=== PATIENT | female | born 1970 | race African-American/Black ===

== ENCOUNTER 2018-04-27 00:58 | Inpatient (IN) | payer MEDICAID ==
[~2018-04-27] VITALS: Ht 198.1 cm; Wt 66.7 kg
[2018-04-27] MEDS ORDERED: LORAZEPAM 2MG/ML CPJ IV STA (01:12)
[2018-04-27] MEDS ORDERED: SODIUM CHLORIDE 0.9% 1,000 ML IV ONE (01:12)
[2018-04-27] MEDS ORDERED: ONDANSETRON HCL 4MG/2ML INJ IV STA (01:12)
[2018-04-27 01:31] LABS: BG BASE EXCESS -0.3 mmol/L (-2.0-2.0); BG CARBOXYHEMOGLOBIN 2.3 % (0.5-1.5); BG FRACTION INSPIRED OXYGEN 21; BG HCO3 ACT 22.7 mmol/L (22.0-26.0); BG METHEMOGLOBIN 0.3 % (0.0-1.5); BG OXYGEN SATURATION 96.9 % (92.0-98.5); BG OXYHEMOGLOBIN 94.4 % (94.0-97.0); BG PCO2 32.2 mmHg (35.0-45.0); BG PH 7.466 (7.350-7.450); BG PO2 87.3 mmHg (75.0-100.0); BG SAMPLE SITE RIGHT RADIAL; BG TOTAL HEMOGLOBIN 13.1 g/dL (12.0-18.0); BG VENT MODE ROOM AIR
[2018-04-27 03:02] LABS: CLARITY URINE CLEAR (CLEAR); COLOR URINE YELLOW (YELLOW); KETONES URINE TRACE (NEGATIVE); LEUKOCYTE ESTERASE URINE NEGATIVE (NEGATIVE); NITRITE URINE NEGATIVE (NEGATIVE); OCCULT BLOOD URINE NEGATIVE (NEGATIVE); PH URINE 8.5 (4.5-8.0); PROTEIN URINE NEGATIVE (NEGATIVE); SPECIFIC GRAVITY URINE 1.012 (1.005-1.030)
[2018-04-27 03:07] LABS: BASOPHILS % 0.7 % (0.0-2.0); EOSINOPHILS % 0.1 % (0.0-5.0); HEMATOCRIT. 33.8 % (36.0-48.0); HEMOGLOBIN. 11.6 g/dL (12.0-16.0); LYMPHOCYTES % 16.2 % (20.0-50.0); MEAN CORPUSCULAR HEMOGLOBIN 33.7 pg (28.0-32.0); MEAN CORPUSCULAR VOLUME 97.9 fL (81.0-99.0); MEAN PLATELET VOLUME 8.4 fl (7.4-10.4); MONOCYTES % 3.9 % (2.0-8.0); NEUTROPHILS % 79.1 % (40.0-76.0); PLATELET 194 x1000/uL (130-400); RED BLOOD CELL COUNT 3.46 mill/uL (4.2-5.4)
[2018-04-27 03:14] LABS: CHLORIDE 112 mEq/L (98-107)
[2018-04-27 03:18] LABS: ETHANOL BLOOD < 10 mg/dL
[2018-04-27 03:23] LABS: CREATINE KINASE 62 IU/L (26-192)
[2018-04-27 03:28] LABS: *AMPHETAMINES SCREEN URINE NEGATIVE (NEGATIVE); *BARBITURATES SCREEN URINE NEGATIVE (NEGATIVE); *BENZODIAZEPINES SCREEN URINE NEGATIVE (NEGATIVE); *COCAINE SCREEN URINE NEGATIVE (NEGATIVE)
[2018-04-27 03:29] LABS: CANNABINOID URINE SCREEN NEGATIVE (NEGATIVE); METHADONE URINE SCREEN NEGATIVE (NEGATIVE); OPIATES URINE SCREEN NEGATIVE (NEGATIVE); PHENCYCLIDINE URINE SCREEN NEGATIVE (NEGATIVE)
[2018-04-27] MEDS: DEXT 5%/0.45% NACL 1000ML 1,000 ML IV SCH ×2 (06:53→14:49)
[2018-04-27] MEDS ORDERED: ACETAMINOPHEN 650MG SUPP PR PRN (07:00)
[2018-04-27] MEDS ORDERED: ONDANSETRON HCL 4MG/2ML INJ IV PRN (07:00)
[2018-04-27 11:58] VITALS: BP 122/87
[2018-04-27 12:00] VITALS: BP 133/85
[2018-04-27] MEDS: LACTULOSE 20G/30ML UDC PO SCH ×3 (14:00→21:02)
[2018-04-27 16:00] VITALS: BP 135/60
[2018-04-27 20:00] VITALS: BP 139/66
[2018-04-27] MEDS: DIPHENHYDRAMINE 50MG/ML VIAL IV PRN (20:07)
[2018-04-27] MEDS ORDERED: HALOPERIDOL LACTATE 5MG/ML VIAL IM NR (21:00)
[2018-04-27] MEDS: LORAZEPAM 2MG/ML CPJ IV PRN (22:08)
[2018-04-28] VITALS: BP 137/74
[2018-04-28] MEDS: DIPHENHYDRAMINE 50MG/ML VIAL IV PRN ×3 (02:12→21:54)
[2018-04-28] MEDS: DEXT 5%/0.45% NACL 1000ML 1,000 ML IV SCH ×2 (02:18→22:01)
[2018-04-28 04:00] VITALS: BP 135/75
[2018-04-28] MEDS: LACTULOSE 20G/30ML UDC PO SCH ×3 (06:09→21:06)
[2018-04-28 07:31] LABS: BASOPHILS % 0.2 % (0.0-2.0); EOSINOPHILS % 0.2 % (0.0-5.0); HEMATOCRIT. 34.9 % (36.0-48.0); HEMOGLOBIN. 12.2 g/dL (12.0-16.0); LYMPHOCYTES % 37.8 % (20.0-50.0); MEAN CORPUSCULAR HEMOGLOBIN 33.9 pg (28.0-32.0); MEAN CORPUSCULAR VOLUME 97.2 fL (81.0-99.0); MEAN PLATELET VOLUME 8.7 fl (7.4-10.4); MONOCYTES % 6.5 % (2.0-8.0); NEUTROPHILS % 55.3 % (40.0-76.0); PLATELET 188 x1000/uL (130-400); RED BLOOD CELL COUNT 3.59 mill/uL (4.2-5.4); RED CELL DISTRIBUTION WIDTH 12.6 % (11.6-14.6)
[2018-04-28 08:00] VITALS: BP 149/79
[2018-04-28 08:00] LABS: CHLORIDE 112 mEq/L (98-107)
[2018-04-28 08:14] LABS: LDL CHOLESTEROL 93 mg/dL (5-100)
[2018-04-28 08:15] LABS: T4 FREE 1.07 ng/dL (0.76-1.46)
[2018-04-28 08:16] LABS: HDL CHOLESTEROL 31 mg/dL (40-59)
[2018-04-28 12:00] VITALS: BP 129/74
[2018-04-28] MEDS: LORAZEPAM 2MG/ML CPJ IV PRN ×2 (14:03→19:37)
[2018-04-28 16:00] VITALS: BP 129/60
[2018-04-28 20:00] VITALS: BP 125/64
[2018-04-29] VITALS: BP 115/58
[2018-04-29] MEDS: LORAZEPAM 2MG/ML CPJ IV PRN (00:35)
[2018-04-29 04:00] VITALS: BP 119/60
[2018-04-29] MEDS: LACTULOSE 20G/30ML UDC PO SCH ×3 (05:09→22:42)
[2018-04-29 07:57] LABS: BASOPHILS % 0.3 % (0.0-2.0); EOSINOPHILS % 0.2 % (0.0-5.0); HEMOGLOBIN. 12.1 g/dL (12.0-16.0); LYMPHOCYTES % 35.3 % (20.0-50.0); MEAN CORPUSCULAR HEMOGLOBIN 33.5 pg (28.0-32.0); MEAN CORPUSCULAR VOLUME 97.3 fL (81.0-99.0); MEAN PLATELET VOLUME 9.1 fl (7.4-10.4); MONOCYTES % 8.7 % (2.0-8.0); NEUTROPHILS % 55.5 % (40.0-76.0); PLATELET 175 x1000/uL (130-400); RED CELL DISTRIBUTION WIDTH 12.3 % (11.6-14.6)
[2018-04-29 08:00] VITALS: BP 124/84
[2018-04-29 08:35] LABS: CHLORIDE 108 mEq/L (98-107)
[2018-04-29 12:00] VITALS: BP 128/74
[2018-04-29] MEDS: DEXT 5%/0.45% NACL 1000ML 1,000 ML IV SCH (12:13)
[2018-04-29 16:00] VITALS: BP 129/79
[2018-04-29 20:00] VITALS: BP 138/49
[2018-04-30] VITALS: BP 120/80
[2018-04-30 04:00] VITALS: BP_SYST 129; BP_SYST 135; BP_DIAS 56; BP_DIAS 63
[2018-04-30] MEDS: LACTULOSE 20G/30ML UDC PO SCH ×2 (05:30→14:00)
[2018-04-30 07:56] VITALS: BP 126/67
[2018-04-30 12:00] VITALS: BP 94/56
[2018-04-30] MEDS: DEXT 5%/0.45% NACL 1000ML 1,000 ML IV SCH (14:16)
[2018-04-30 15:19] VITALS: BP 140/79
== END 2018-04-30 16:35 | disposition home or self-care (01) | DRG 279 ==
LOC: ER 00:58 → 5WST 06:23 → EDBEDREQ 06:26 → EDBEDREQTM 06:26 → SUPCPDRO 06:52 → ENRESERV 08:31 → 5WST 11:37
PROVIDERS: ADMIT Hospitalist; ATTEND Hospitalist
DX: K72.90 Hepatic failure, unspecified without coma (principal); E72.20 Disorder of urea cycle metabolism, unspecified; E44.0 Moderate protein-calorie malnutrition; E87.8 Other disorders of electrolyte and fluid balance, not elsewhere classified; E87.2 Acidosis; R00.1 Bradycardia, unspecified
CPT/HCPCS: 36415; 36600; 70551; 71045; 80061; 80305; 80307; 80329; 82140; 82375; 82550; 82805; 82962; 83605; 84439; 84443; 84484; 93005; 96361; 96374; 96375; 99291; G0482; J1200; J1630; J2060; J2405; J7030; A4315

== ENCOUNTER 2018-05-13 23:24 | Emergency (ER) | payer MEDICAID ==
[~2018-05-13] VITALS: Ht 172.7 cm; Wt 65.0 kg
[2018-05-14] MEDS ORDERED: SODIUM CHLORIDE 0.9% 1,000 ML IV ONE (00:40)
[2018-05-14 00:55] LABS: BASOPHILS % 0.3 % (0.0-2.0); EOSINOPHILS % 0.4 % (0.0-5.0); HEMATOCRIT. 41.8 % (36.0-48.0); HEMOGLOBIN. 14.1 g/dL (12.0-16.0); LYMPHOCYTES % 45.3 % (20.0-50.0); MEAN CORPUSCULAR HEMOGLOBIN 33.2 pg (28.0-32.0); MEAN CORPUSCULAR VOLUME 98.2 fL (81.0-99.0); MEAN PLATELET VOLUME 8.7 fl (7.4-10.4); MONOCYTES % 5.6 % (2.0-8.0); NEUTROPHILS % 48.4 % (40.0-76.0); PLATELET 374 x1000/uL (130-400); RED BLOOD CELL COUNT 4.25 mill/uL (4.2-5.4)
[2018-05-14 01:03] LABS: CHLORIDE 108 mEq/L (98-107)
[2018-05-14 01:09] LABS: ETHANOL BLOOD < 10 mg/dL
[2018-05-14 02:24] LABS: CLARITY URINE CLOUDY (CLEAR); COLOR URINE YELLOW (YELLOW); KETONES URINE NEGATIVE (NEGATIVE); LEUKOCYTE ESTERASE URINE NEGATIVE (NEGATIVE); NITRITE URINE NEGATIVE (NEGATIVE); OCCULT BLOOD URINE NEGATIVE (NEGATIVE); PROTEIN URINE NEGATIVE (NEGATIVE); SPECIFIC GRAVITY URINE 1.009 (1.005-1.030)
[2018-05-14 03:05] LABS: *AMPHETAMINES SCREEN URINE NEGATIVE (NEGATIVE); *BARBITURATES SCREEN URINE NEGATIVE (NEGATIVE); *BENZODIAZEPINES SCREEN URINE NEGATIVE (NEGATIVE); *COCAINE SCREEN URINE NEGATIVE (NEGATIVE); METHADONE URINE SCREEN NEGATIVE (NEGATIVE); OPIATES URINE SCREEN NEGATIVE (NEGATIVE)
[2018-05-14 03:06] LABS: CANNABINOID URINE SCREEN NEGATIVE (NEGATIVE); PHENCYCLIDINE URINE SCREEN NEGATIVE (NEGATIVE)
[2018-05-14 11:33] VITALS: BP 124/92
== END 2018-05-14 11:45 | disposition home or self-care (01) ==
LOC: ER 23:24
DX: T50.991A Poisoning by other drugs, medicaments and biological substances, accidental (unintentional), initial encounter (principal); G92 Toxic encephalopathy; Y92.89 Other specified places as the place of occurrence of the external cause
CPT/HCPCS: 36415; 70450; 80053; 80305; 80307; 80329; 81003; 81025; 82962; 85025; 87186; 93005; 96360; 96361; 99284; J7030